=== PATIENT | female | born 1980 | race Caucasian/White ===

== ENCOUNTER → 2018-09-18 15:55 | Outpatient (CLI) | payer OTHER, MEDICAID, SELFPAY ==
--- NOTE | 2018-09-18 | DI.MRI.S_ITS ---
PROCEDURE: MR HEAD/BRAIN WO CON INDICATIONS: DIPLOPIA TECHNIQUE: Noncontrast axial T1 spin echo, axial T2 fast spin echo, sagittal and axial FLAIR, coronal T2 fast spin echo, axial gradient echo, axial diffusion and ADC through the brain. COMPARISON: None. FINDINGS: Image quality: Excellent. CSF Spaces: Basal cisterns are patent. No extra-axial fluid collections. Ventricles are normal in size and shape. Brain: No intracranial masses or hemorrhage. Rivers/white matter interface is normal. Brainstem appears normal. Diffusion-weighted images demonstrate no acute ischemic insult. No chronic ischemic insults. Normal intravascular flow voids are present. Skull and face: Calvarium has normal marrow signal. Orbits appear normal. Sinuses: Sinuses and mastoids are clear. IMPRESSION: 1. Negative brain MRI. 2. No explanation for diplopia. Dictated by: Rosa Colon M.D. on 09/18/2018 at 16:38 Approved by: Rosa Colon M.D. on 09/18/2018 at 16:40
== END ==
PROVIDERS: PCP Family Medicine; Visit Provider Family Medicine
DX: H53.2 Diplopia (principal)
CPT/HCPCS: 70551

== ENCOUNTER → 2019-10-01 09:06 | Outpatient (CLI) | payer OTHER, MEDICAID, SELFPAY ==
--- NOTE | 2019-10-01 09:09 | DI.US.S_ITS ---
PROCEDURE: US PELVIC COMPLETE INDICATIONS: ENDOMETRIOSIS TECHNIQUE: Real-time scanning was performed of the pelvic organs, with image documentation. Additional endovaginal scanning was necessary due to incomplete visualization of the adnexal and endometrial structures by transabdominal scanning. COMPARISON: None. FINDINGS: Transabdominal scanning: Limited scanning through the kidneys shows no hydronephrosis. No pathologic free abdominal or pelvic fluid. Endovaginal scanning: Uterus: Uterus is normal in size at 10.1 x 4.7 x 5.9 cm. the uterus demonstrates a heterogeneous appearance. There is a 2.2 x 2 x 1.9 cm intramural fibroid seen on the right posteriorly. The endometrium measures 10 mm in combined thickness. Ovaries: The right ovary measures 3.4 x 2.6 x 2.2 cm. The left ovary measures 2.8 x 2.2 x 1.4 cm. The ovaries have a normal sonographic appearance. No adnexal masses are seen. IMPRESSION: No adnexal masses are seen in this patient with a given history of endometriosis. Normal appearing ovaries. 2.3 cm right posterior fibroid seen. Dictated by: Elder Wagner M.D. on 10/01/2019 at 10:42 Approved by: Elder Wagner M.D. on 10/01/2019 at 10:43
--- NOTE | 2019-10-01 09:09 | DI.MG.S_ITS ---
BILATERAL DIGITAL SCREENING MAMMOGRAM 3D/2D WITH CAD: 10/01/2019 CLINICAL: Baseline exam. Routine screening. Family history of breast cancer. No prior exams were available for comparison. The tissue of both breasts is predominantly fatty. Current study was also evaluated with a Computer Aided Detection (CAD) system. There is a focal asymmetry with grouped punctate calcifications in the right breast central to the nipple posterior depth. No other significant masses, calcifications, or other findings are seen in either breast. IMPRESSION: INCOMPLETE: NEEDS ADDITIONAL IMAGING EVALUATION The focal asymmetry in the right breast is indeterminate. Spot magnification views as well as additional views with possible ultrasound are recommended. This exam was interpreted at Station ID: [id number]. NOTE: For mammograms, a report in lay terms will be sent to the patient. Approximately 15% of breast malignancies will not be visualized mammographically. In the management of a palpable breast mass, a negative mammogram must not discourage biopsy of a clinically suspicious lesion. Electronically Signed By: Hope Casey M.D. lk/:10/01/2019 09:48:40 letter sent: Additional Imaging Needed ACR BI-RADS Category 0: Incomplete 3340F
== END ==
PROVIDERS: PCP Family Medicine; Referring Provider Obstetrics & Gynecology; Visit Provider Obstetrics & Gynecology
DX: Z12.31 Encounter for screening mammogram for malignant neoplasm of breast (principal); Z80.3 Family history of malignant neoplasm of breast; D25.1 Intramural leiomyoma of uterus; N80.9 Endometriosis, unspecified
CPT/HCPCS: 76830; 76856; 77063; 77067

== ENCOUNTER → 2019-10-15 13:20 | Outpatient (CLI) | payer OTHER, MEDICAID, SELFPAY ==
--- NOTE | 2019-10-15 13:21 | DI.MG.S_ITS ---
UNILATERAL RIGHT DIGITAL DIAGNOSTIC MAMMOGRAM 3D/2D WITH ADDITIONAL VIEWS: 10/15/2019 CLINICAL: Additional evaluation requested from prior study. Comparison is made to exam dated: 10/01/2019 mammogram - [facility]. The tissue of right breast is predominantly fatty. The focal asymmetry with grouped punctate calcifications in the right breast central to the nipple middle depth seen on screning mammogram represent a prominent blood vessel with scattered vascular calcifications and is benign. No other significant masses or calcifications are seen in the breast. IMPRESSION: There is no mammographic abnormality seen in the right breast to correspond with the non-bloody discharge from the nipple, however, targeted ultrasound of the right breast is recommended and will be performed immediately following this exam. This exam was interpreted at Station ID: [id number]. NOTE: For mammograms, a report in lay terms will be sent to the patient. Approximately 15% of breast malignancies will not be visualized mammographically. In the management of a palpable breast mass, a negative mammogram must not discourage biopsy of a clinically suspicious lesion. Electronically Signed By: Hope Casey M.D. lk/:10/17/2019 12:50:17 ACR BI-RADS Category 2: Benign Finding(s) 3342F
--- NOTE | 2019-10-15 13:21 | DI.US.S_ITS ---
PROCEDURE: US BREAST RT LIMITED COMPARISON: None. INDICATIONS: ABNORMAL MAMMOGRAM FINDINGS: IMPRESSION: Dictated by: Hope Casey M.D. on 10/15/2019 at 14:53 Approved by: Hope Casey M.D. on 10/15/2019 at 15:05
== END ==
PROVIDERS: PCP Family Medicine; Referring Provider Obstetrics & Gynecology; Visit Provider Obstetrics & Gynecology
DX: R92.8 Other abnormal and inconclusive findings on diagnostic imaging of breast (principal); R92.1 Mammographic calcification found on diagnostic imaging of breast; N64.52 Nipple discharge; N64.89 Other specified disorders of breast
CPT/HCPCS: 76642; 77065; G0279

== ENCOUNTER 2020-01-12 10:44 | Emergency (ER) | payer OTHER, MEDICAID, SELFPAY ==
[2020-01-12] VITALS (19 sets, daily range): BP systolic 103–147; BP diastolic 56–78; PULSE 62–107; RESP 12; TEMP 36.5; O2SAT 99–100
[2020-01-12 11:46] LABS: Add Manual Diff / Slide Review NO; Basophils Absolute Auto 100 /uL (0-100); Basophils Percent Auto 0.5 % (0-2); Eosinophils Absolute Auto 100 /uL (0-450); Eosinophils Percent Auto 0.6 % (2-4); Hematocrit 37.9 % (36-46); Hemoglobin 12.6 g/dL (12.0-16.0); Lymphocytes Absolute Auto 2900 /uL (1100-4500); Lymphocytes Percent Auto 21.9 % (25-40); Mean Corpuscular HGB Conc 33.3 % (30-36); Mean Corpuscular Hemoglobin 30.5 PG (26-34); Mean Corpuscular Volume 91.6 fL (80-100); Monocytes Absolute Auto 700 /uL (0-900); Monocytes Percent Auto 5.3 % (3-14); Neutrophils Absolute Auto 9400 /uL (1500-7000); Neutrophils Percent Auto 71.7 % (50-75); Platelet Count 464 X10^3/uL (150-400); Red Blood Cell Count 4.14 X10^6/uL (4.0-5.2); Red Cell Distribution Width 13.6 % (11.6-14.8); White Blood Cell Count 13.1 X10^3/uL (4.5-11.0)
[2020-01-12 11:56] LABS: Prothrombin Time 11.1 SECONDS (10.1-12.7)
[2020-01-12 11:58] LABS: PTT Partial Thromboplastin Tim 37 SECONDS (26.4-36.2)
[2020-01-12 12:00] LABS: Alanine Aminotransferase 45 IU/L (<35); Albumin 4.4 g/dL (3.5-5.0); Albumin Globulin Ratio 1.5 (1.0-2.8); Alkaline Phosphatase 106 U/L (38-126); Aspartate Aminotransferase 32 IU/L (14-36); BUN Creatinine Ratio 17.2 (6-22); Bilirubin Total 0.2 mg/dL (0.2-1.3); Blood Urea Nitrogen 10 mg/dL (7-17); Calcium 9.5 mg/dL (8.4-10.2); Carbon Dioxide 26 mmol/L (22-32); Chloride 105 mmol/L (98-107); Estimated Glomerular Filt Rate > 60.0 mL/min (>60); Globulin 2.9 g/dL (1.7-4.1); Glucose 103 mg/dL (70-100); HEMOLYSIS < 15 (0-50); Lipase 29 U/L (23-300); Potassium 4.1 mmol/L (3.4-5.1); Sodium 137 mmol/L (137-145); Total Protein 7.3 g/dL (6.3-8.2)
--- NOTE | 2020-01-12 12:14 | DI.US.S_ITS ---
PROCEDURE: US PELVIC COMPLETE INDICATIONS: PAIN TECHNIQUE: Real-time scanning was performed of the pelvic organs, with image documentation. Additional endovaginal scanning was necessary due to incomplete visualization of the adnexal and endometrial structures by transabdominal scanning. COMPARISON: [facility], , US PELVIC COMPLETE, 10/01/2019, 10:10. FINDINGS: Transabdominal scanning: Limited scanning through the kidneys demonstrates no hydronephrosis. A small amount of free fluid is demonstrated in the adnexa bilaterally with low level internal echoes suggestive of blood product. Endovaginal scanning: Uterus: Uterus measures 9.7 x 5.1 x 6.4. The endometrium measures 1.7 cm in combined thickness with suggestion of a small amount of endometrial fluid. There are 2 right posterior intramural fibroids measuring 1.7 x 1.3 x 1.7 cm and 1.5 x 0.9 x 1.6 cm. Ovaries: The right ovary measures 6.3 x 4.4 x 4.8 cm and the left ovary measures 3.5 x 1.7 x 2.6 cm. There is a thick-walled cystic structure in the right ovary measuring approximately 3.9 x 2.9 x 3.7 cm with posterior acoustic enhancement. There is peripheral vascularity within the wall of the cystic structure. No discrete left adnexal mass. There is patent arterial flow demonstrated within the ovaries. IMPRESSION: 1. Thick-walled complex cyst in the right ovary suggestive of a hemorrhagic cyst. Recommend follow-up ultrasound in 6 weeks to demonstrate resolution if clinically indicated. 2. Small amount of free fluid within the adnexa with low level internal echoes suggestive of blood products. The findings may reflect sequelae of a ruptured hemorrhagic cyst. Recommend attention on follow-up. 3. Mild endometrial thickening likely represents physiologic changes within a premenopausal female. 4. Small intramural fibroids demonstrated in the uterus. Dictated by: Michael Solares M.D. on 01/12/2020 at 14:08 Approved by: Michael Solares M.D. on 01/12/2020 at 14:15
--- NOTE | 2020-01-12 12:17 | ED_ITS ---
HPI - Abdominal Pain <NEVILLE Gan - Last Filed: 01/12/20 23:06> General Chief Complaint: Abdominal Pain Stated Complaint: abdominal cyst Time Seen by Provider: 01/12/20 11:43 Source: patient Mode of arrival: Ambulatory Limitations: no limitations History of Present Illness HPI narrative: This is a 39 year female, smoker, who has history of endometriosis for last 20 years and had laparoscopic surgery by Dr. Barroso in the past, presents to ED with chief complain of abdominal distension and bilateral low abdominal pain below umbilicus with nausea and chills which became worse si nce yesterday evening at 7:00 p.m.. Patient reports her symptoms are ongoing for last 2-3 months and she used to take control pill to help with endometriosis but got off about 2-3 months ago after noticed platelet count is elevated. She had taken Aleve last night without much improvement. Patient reports pain is radiating to her back from mid abdomen below umbilicus and also from perineum to upper abdomen. She rates pain as 6-9/10 and pretty constant. She reports chills. Patient denies unusual vaginal discharge. She reports her bladder feels full and feels like emptying incompletely with frequent urination. Patient denies burning discomfort with urination but painful to urinate at times. She reports loose bowel movements which is normal for her and had probably yesterday morning. Patient reports mildly decreased appetite and gradual weight loss of 10 lb. Patient was seen by Dr. Canchola last year to follow up with endometriosis about a year ago and had last ultrasound test in pelvic done about 4 months ago. Related Data Previous Rx's Medication Instructions Recorded oxycodone 5 mg tablet 5 mg PO Q8H PRN #14 tab 01/23/20 Allergies Allergy/AdvReac Type Severity Reaction Status Date / Time hydrocodone AdvReac Nausea Verified 01/23/20 13:10 Review of Systems <NEVILLE Gan - Last Filed: 01/12/20 23:06> Review of Systems Narrative: General: Denies fever, (+) chills, fatigue, malaise, sweats. HEENT: Denies sinus pain, ear pain, sore throat, difficulty swallowing, dizziness. Respiratory: Denies dyspnea, cough, wheezing, hemoptysis, sputum. Cardiovascular: Denies chest pain, palpitations, orthopnea, edema. Gastrointestinal: See HPI : Denies dysuria, see HPI Musculoskeletal: Denies weakness, joint pain or bony pain. Skin: Denies rash, skin lesions, or other. Neurologic: Denies weakness, headache, numbness, change in speech, confusion, seizures, incoordination. Psychiatric: No concerning psychosocial issues. 12-point review of systems is negative except for those stated above. Patient History <NEVILLE Gan - Last Filed: 01/12/20 23:06> Medical History Endometriosis (Acute) Vaginal delivery (Acute) Surgical History H/O laparoscopy (Acute ~2004) Family History Father History of heart disease Diabetes mellitus Hyperlipidemia Hypertension Grandfather History of heart disease Diabetes mellitus Social History Smoking Status: Current every day smoker Smoking Status: Current every day smoker alcohol intake frequency: other Substance Use Type: does not use Exam <NEVILLE Gan - Last Filed: 01/12/20 23:06> Narrative Exam Narrative: GEN: Alert, oriented x 3, well appearing and nourished, and in no acute distress. Head: Normal cephalic, atraumatic. No scalp or temporal tenderness, palpable mass or rash. EYES: Pupils are equal, round, and reactive to light and accommodation. E xtraocular muscles are intact bilaterally. There is no subconjunctival hemorrhage, exudate and sclera non-icteric. ENT: Hearing grossly intact. Nose without bleeding, purulent discharge or deviation. Facial sinuses nontender to palpate. Mucous membrane slightly dry, no mucosal lesion. Throat without erythema, tonsillar hypertrophy or exudate. Uvula in midline, airway patent. Neck: Trachea in midline. No JVD, non-tender without lymphadenopathy. No masses or thyroid megaly. Supple, non-tender and no meningeal signs. CARDIAC: Normal regular rate and rhythm without murmurs, gallops, or rubs. No chest wall tenderness. No peripheral edema, cyanosis or pallor. Capillary refill is less than 2 seconds. RESPIRATORY: Lungs are clear to auscultate bilaterally. No cough, wheezes, rales, or rhonchi. No stridor, respiratory distress, increase work of breathing, or accessary muscle used. ABD: Abdomen soft, with mild distension and tender to palpate in bilateral lower abdomen. No guarding or rebound tenderness to palpate. Bowel sounds are normal in all 4 quadrants. There is no palpable masses or organomegaly. EXT: Full painless ROM of all extremities with no loss of sensation, strength, effusion or edema. SKIN: Warm, dry, normal color for patient. No erythema, lesions or rash over visible areas. BACK: Nontender without deformity or crepitance. No flank tenderness. NEUROLOGICAL: Alert and oriented to place, time and person. Sensation and motor function intact bilaterally. No facial droops, dysphasia. PSYCHIATRIC: Good judgement and reason, without hallucinations, abnormal affect or abnormal behaviors during the examination. Patient is not suicidal. Initial Vital Signs Initial Vital Signs: Vital Signs Temperature 97.7 F 01/12/20 10:46 Pulse Rate 99 H 01/12/20 10:46 Respiratory Rate 12 01/12/20 10:46 Blood Pressure 147/76 H 01/12/20 10:46 Pulse Oximetry 100 01/12/20 10:46 General: No CVA tenderness External Female Exam: normal external appearance Speculum Exam - Vagina: normal appearance of the vagina, normal vaginal discharge, not erythematous, no lesions, No vaginal bleeding and no masses Speculum Exam - Cervix: normal appearance of the cervix Bimanual Exam- Vagina & Uterus: not boggy and tender Bimanual Exam- Adnexa, other: tender on the right OB/External & Speculum: No vaginal bleeding Other: Post Void Bladder scan-42ml <Connor Anaya MD - Last Filed: 01/27/20 09:05> Initial Vital Signs Initial Vital Signs: Vital Signs Temperature 97.7 F 01/12/20 10:46 Pulse Rate 99 H 01/12/20 10:46 Respiratory Rate 12 01/12/20 10:46 Blood Pressure 147/76 H 01/12/20 10:46 Pulse Oximetry 100 01/12/20 10:46 Scores <Jignesh NEVILLE Servin - Last Filed: 01/12/20 23:06> GCS [place] coma scale eye opening: Spontaneous [place] coma scale verbal response: Orientated [place] coma scale motor response: Obey commands [place] coma scale total score: 15 qSOFA Altered Mental Status (GCS <15): No Respiratory rate greater than/equal to 22: No Systolic blood pressure less than or equal to 100: No qSOFA Total: 0 0-1 Not High Risk 1-3 High risk Course <Jignesh Donaldson-NEVILLE Rojo - Last Filed: 01/12/20 23:06> Orders Ordered: Discontinued Medications Sodium Chloride (Normal Saline 0.9%) 1,000 mls @ 1,000 mls/hr IV BOLUS ONE Stop: 01/12/20 13:15 Last Infusion: 01/12/20 13:50 Dose: 0 mls/hr Documented by: Admin: 01/12/20 12:41 Dose: 1,000 mls/hr Documented by: KRISTAN Ketorolac Tromethamine (Toradol) 15 mg IV NOW ONE Stop: 01/12/20 12:17 Last Admin: 01/12/20 12:41 Dose: 15 mg Documented by: KRISTAN Morphine Sulfate (Morphine) 4 mg IV NOW ONE Stop: 01/12/20 15:02 Last Admin: 01/12/20 15:10 Dose: 4 mg Documented by: KRISTAN Ondansetron HCl (Zofran) 4 mg IV NOW ONE Stop: 01/12/20 12:17 Last Admin: 01/12/20 12:41 Dose: 4 mg Documented by: KRISTAN Reevaluation(s) Reevaluation #1: Reports abdominal pain improved after the Toradol which took the edge off and declines other analgesia at this time. Informed patient currently waiting for ultrasound test results. Time: 13:43 Vital Signs Vital signs: Vital Signs - 8 hr 01/12/20 14:30 01/12/20 15:00 01/12/20 15:30 Pulse Rate 62 64 68 Blood Pressure 103/66 108/56 L 110/61 Pulse Oximetry 100 100 100 01/12/20 15:35 01/12/20 15:40 01/12/20 15:45 Pulse Rate 107 H 80 Blood Pressure Pulse Oximetry 99 100 100 01/12/20 15:50 01/12/20 15:55 01/12/20 16:00 Pulse Rate 63 63 73 Blood Pressure 106/66 Pulse Oximetry 100 100 100 01/12/20 16:05 01/12/20 16:11 01/12/20 16:15 Pulse Rate 64 83 68 Blood Pressure Pulse Oximetry 100 99 100 01/12/20 16:20 Pulse Rate 62 Blood Pressure Pulse Oximetry 100 <Connor Anaya MD - Last Filed: 01/27/20 09:05> Orders Ordered: Discontinued Medications Sodium Chloride (Normal Saline 0.9%) 1,000 mls @ 1,000 mls/hr IV BOLUS ONE Stop: 01/12/20 13:15 Last Infusion: 01/12/20 13:50 Dose: 0 mls/hr Documented by: Admin: 01/12/20 12:41 Dose: 1,000 mls/hr Documented by: KRISTAN Ketorolac Tromethamine (Toradol) 15 mg IV NOW ONE Stop: 01/12/20 12:17 Last Admin: 01/12/20 12:41 Dose: 15 mg Documented by: KRISTAN Morphine Sulfate (Morphine) 4 mg IV NOW ONE Stop: 01/12/20 15:02 Last Admin: 01/12/20 15:10 Dose: 4 mg Documented by: KRISTAN Ondansetron HCl (Zofran) 4 mg IV NOW ONE Stop: 01/12/20 12:17 Last Admin: 01/12/20 12:41 Dose: 4 mg Documented by: KRISTAN Vital Signs Vital signs: Vital Signs - 8 hr 01/12/20 14:30 01/12/20 15:00 01/12/20 15:30 Pulse Rate 62 64 68 Blood Pressure 103/66 108/56 L 110/61 Pulse Oximetry 100 100 100 01/12/20 15:35 01/12/20 15:40 01/12/20 15:45 Pulse Rate 107 H 80 Blood Pressure Pulse Oximetry 99 100 100 01/12/20 15:50 01/12/20 15:55 01/12/20 16:00 Pulse Rate 63 63 73 Blood Pressure 106/66 Pulse Oximetry 100 100 100 01/12/20 16:05 01/12/20 16:11 01/12/20 16:15 Pulse Rate 64 83 68 Blood Pressure Pulse Oximetry 100 99 100 01/12/20 16:20 Pulse Rate 62 Blood Pressure Pulse Oximetry 100 MDM - Abdominal Pain <NEVILLE Gan - Last Filed: 01/12/20 23:06> Differential Diagnosis Differential diagnosis: Likely endometriosis and other (Fibroids, ovarian cysts, colitis, ovarian torsion, UTI) Medical Records Attestation: I reviewed the patient's medical records. Lab Data Attestation: I reviewed the patient's lab results. Result diagrams: 01/12/20 11:37 01/12/20 11:37 Labs: Lab Results 01/12/20 01/12/20 01/12/20 Range/Units 11:37 11:37 11:37 WBC 13.1 H (4.5-11.0) X10^3/uL RBC 4.14 (4.0-5.2) X10^6/uL Hgb 12.6 (12.0-16.0) g/dL Hct 37.9 (36-46) % MCV 91.6 (80-100) fL MCH 30.5 (26-34) PG MCHC 33.3 (30-36) % RDW 13.6 (11.6-14.8) % Plt Count 464 H (150-400) X10^3/uL Neut % (Auto) 71.7 (50-75) % Lymph % (Auto) 21.9 L (25-40) % Jerome % (Auto) 5.3 (3-14) % Eos % (Auto) 0.6 L (2-4) % Baso % (Auto) 0.5 (0-2) % Neut # (Auto) 9400 H (8156-1719) /uL Lymph # (Auto) 2900 (9402-7995) /uL Jerome # (Auto) 700 (0-900) /uL Eos # (Auto) 100 (0-450) /uL Baso # (Auto) 100 (0-100) /uL PT 11.1 (10.1-12.7) SECONDS INR 1.0 (0.9-1.3) APTT 37 H (26.4-36.2) SECONDS Sodium 137 (137-145) mmol/L Potassium 4.1 (3.4-5.1) mmol/L Chloride 105 (98-107) mmol/L Carbon Dioxide 26 (22-32) mmol/L BUN 10 (7-17) mg/dL Creatinine 0.58 (0.52-1.04) mg/dL Estimated GFR > 60.0 (>60) mL/min BUN/Creatinine Ratio 17.2 (6-22) Glucose 103 H (70-100) mg/dL Calcium 9.5 (8.4-10.2) mg/dL Total Bilirubin 0.2 (0.2-1.3) mg/dL AST 32 (14-36) IU/L ALT 45 H (<35) IU/L Alkaline Phosphatase 106 (38-126) U/L Total Protein 7.3 (6.3-8.2) g/dL Albumin 4.4 (3.5-5.0) g/dL Globulin 2.9 (1.7-4.1) g/dL Albumin/Globulin Ratio 1.5 (1.0-2.8) Lipase 29 (23-300) U/L Point of care testing: Point of Care Testing Test Results Negative Urine Dip Bedside Urine Glucose Negative Bedside Urine Bilirubin - Negative Bedside Urine Ketone - Negative Urine Specific [place] 1.020 Bedside Urine Occult Blood - Negative Bedside Urine pH 6.0 Bedside Urine Protein - Negative Bedside Urine Urobilinogen - Negative Bedside Urine Nitrite - Negative Bedside Urine Leukocytes - Negative Esterase Imaging Data US - [facility]: Radiologist's Impression: [address] [address] Ultrasound Report Signed Patient: Claudette Navarro EMR#: [id number] : 1980Acct:[id number] Age/Sex: 39 / FDate of Service: 01/12/20 Loc: ED Accession Number: [id number] Procedure: US pelvic complete Ordering Provider: Jignesh Servin PROCEDURE: US PELVIC COMPLETE INDICATIONS: PAIN TECHNIQUE: Real-time scanning was performed of the pelvic organs, with image documentation. Additional endovaginal scanning was necessary due to incomplete visualization of the adnexal and endometrial structures by transabdominal scanning. COMPARISON: [facility], US PELVIC COMPLETE, 10/01/2019, 10:10. FINDINGS: Transabdominal scanning: Limited scanning through the kidneys demonstrates no hydronephrosis. A small amount of free fluid is demonstrated in the adnexa bilaterally with low level internal echoes suggestive of blood product. Endovaginal scanning: Uterus: Uterus measures 9.7 x 5.1 x 6.4. The endometrium measures 1.7 cm in combined thickness with suggestion of a small amount of endometrial fluid. There are 2 right posterior intramural fibroids measuring 1.7 x 1.3 x 1.7 cm and 1.5 x 0.9 x 1.6 cm. Ovaries: The right ovary measures 6.3 x 4.4 x 4.8 cm and the left ovary measures 3.5 x 1.7 x 2.6 cm. There is a thick-walled cystic structure in the right ovary lee suring approximately 3.9 x 2.9 x 3.7 cm with posterior acoustic enhancement. There is peripheral vascularity within the wall of the cystic structure. No discrete left adnexal mass. There is patent arterial flow demonstrated within the ovaries. IMPRESSION: 1. Thick-walled complex cyst in the right ovary suggestive of a hemorrhagic cyst. Recommend follow-up ultrasound in 6 weeks to demonstrate resolution if clinically indicated. 2. Small amount of free fluid within the adnexa with low level internal echoes suggestive of blood products. The findings may reflect sequelae of a ruptured hemorrhagic cyst. Recommend attention on follow-up. 3. Mild endometrial thickening likely represents physiologic changes within a premenopausal female. 4. Small intramural fibroids demonstrated in the uterus. Dictated by: Michael Solares M.D. on 01/12/2020 at 14:08 Approved by: Michael Solares M.D. on 01/12/2020 at 14:15 ECG Data Attestation: I personally reviewed and interpreted this ECG as follows: Prior ECG tracings: not available for review Interpretation: Sinus rhythm rate at 76. Normal [place]. NC interval 157, QRS duration 103, QT/QTC 385/416. No acute ST changes MDM Narrative Medical decision making narrative: This is a 39 year female who presents to ED with mid abdominal pain below umbilicus radiating to back, perineum pain radiating up to abdomen with urinary frequency and discomfort and nausea. Patient has history of endometriosis and had laparoscopic surgery done many years ago and stop taking control pill last 2 months due to elevated platelet counts. Patient is afebrile in ED mild tachycardia of 99 beats per minute with normotensive when she arrived to ED. No flank tenderness to percuss. Abdomen was tender to palpate in bilateral worsen right-sided lower lobes. Active bowel sounds in all quadrant. Slightly distended abdomen. Urine test was negative for or indications for infection or occult hematuria. Complete pelvic ultrasound shows mild endometrial thickening measuring 1.7 cm in combined thickness with a small amount of endometrial fluid. There are 2 intramural fibroids measuring less than 2 cm i diameter. Previous US showes in September 2019 one fibroid mesuring 2.3 cm. A large Right ovary measuring 6.3 x 4.4 x and 4.8 cm with a thick-walled complex cyst suggestive of a hemorrhagic cyst measuring 3.9 x 2.9 x 3.7 cm. Right ovary increased in size as compared to September from 3.4 x 2.6 x 2.2 cm and a new finding of right ovarian cyst. Left ovary slightly increase in size from September measurin 3.5 x 1.7 x 2.6 cm without discrete left adnexal mass. There is small amount of free fluid within the adnexa and these findings may reflect sequela of a ruptured hemorrhagic cyst. Within normal H/H of 12.6/37.9. Mild leukocytosis of 13.1. Slightly elevated platelet count of 464 which has been monitored by his PCP with known condition. Unremarkable chemistry test. Pelvic exam with normal external genital exam without unusual vaginal discharge but slight tender to palpate with bimanual exam in uterus and right ovaries without significant cervical motion tenderness. Patient has history of known endometriosis. Given patient reports frequent urination and feels like incomplete bladder emptying, post void bladder scanner was done and it shows minimal amount of urine in bladder of 42 mL. Patient was medicated with IV Zofran, Toradol, IVF infusion and Morphine 4 mg for recurring pain before the pelvic exam. Patient's abdominal discomfort is likely from enlarged right ovary and possibly ruptured right ovary and thick wall complex cyst in right ovary. Patient advised to follow-up with Dr. Canchola or Dr. Barroso at [facility] and discharged to home with few tabs of [place] for severe pain and to use [id number] Tylenol and or Motrin as needed for discomfort. Patient also provided Zofran as needed use for nausea. patient's heart rate has improved to 60s with normotensive before discharge to home. Return precautions were discussed with patient patient verbalized understanding in agreement with the treatment plan. <Connor Anaya MD - Last Filed: 01/27/20 09:05> Lab Data Labs: Lab Results 0901/12/20 01/12/20 Range/Units 11:37 11:37 11:37 WBC 13.1 H (4.5-11.0) X10^3/uL RBC 4.14 (4.0-5.2) X10^6/uL Hgb 12.6 (12.0-16.0) g/dL Hct 37.9 (36-46) % MCV 91.6 (80-100) fL MCH 30.5 (26-34) PG MCHC 33.3 (30-36) % RDW 13.6 (11.6-14.8) % Plt Count 464 H (150-400) X10^3/uL Neut % (Auto) 71.7 (50-75) % Lymph % (Auto) 21.9 L (25-40) % Jerome % (Auto) 5.3 (3-14) % Eos % (Auto) 0.6 L (2-4) % Baso % (Auto) 0.5 (0-2) % Neut # (Auto) 9400 H (4728-3402) /uL Lymph # (Auto) 2900 (4940-0081) /uL Jerome # (Auto) 700 (0-900) /uL Eos # (Auto) 100 (0-450) /uL Baso # (Auto) 100 (0-100) /uL PT 11.1 (10.1-12.7) SECONDS INR 1.0 (0.9-1.3) APTT 37 H (26.4-36.2) SECONDS Sodium 137 (137-145) mmol/L Potassium 4.1 (3.4-5.1) mmol/L Chloride 105 (98-107) mmol/L Carbon Dioxide 26 (22-32) mmol/L BUN 10 (7-17) mg/dL Creatinine 0.58 (0.52-1.04) mg/dL Estimated GFR > 60.0 (>60) mL/min BUN/Creatinine Ratio 17.2 (6-22) Glucose 103 H (70-100) mg/dL Calcium 9.5 (8.4-10.2) mg/dL Total Bilirubin 0.2 (0.2-1.3) mg/dL AST 32 (14-36) IU/L ALT 45 H (<35) IU/L Alkaline Phosphatase 106 (38-126) U/L Total Protein 7.3 (6.3-8.2) g/dL Albumin 4.4 (3.5-5.0) g/dL Globulin 2.9 (1.7-4.1) g/dL Albumin/Globulin Ratio 1.5 (1.0-2.8) Lipase 29 (23-300) U/L Point of care testing: Point of Care Testing Test Results Negative Urine Dip Bedside Urine Glucose Negative Bedside Urine Bilirubin - Negative Bedside Urine Ketone - Negative Urine Specific [place] 1.020 Bedside Urine Occult Blood - Negative Bedside Urine pH 6.0 Bedside Urine Protein - Negative Bedside Urine Urobilinogen - Negative Bedside Urine Nitrite - Negative Bedside Urine Leukocytes - Negative Esterase Discharge Plan Departure Patient Disposition: Home Clinical Impression: Abdominal pain, Ovarian cyst, Fibroid Discharge Date/Time: 01/12/20 16:30 Instructions: DI for Uterine Fibroids, DI for Ovarian Cyst, DI for Abdominal Pain-Adult Activity Restrictions/Additional Instructions: You have been diagnosed with [low abdominal pain. Likely from ovarian cysts and fibroids. According to pelvic ultrasound, it appears to be you probably had recent ovarian cyst rupture. Right ovarian measuring 6.3 x 4.4 x 4.8 and posterior right-sided cyst measuring 3.9 x 2.9 x 3.7 cm and left ovary measuring 3.5 x 1.7 x 2.6 with small amount of free fluid within the adnexa reflecting all ruptured hemorrhagic cyst. You also have 2 intramural fibroids in uterus.]. What to do: *Take your medications as directed. Please take [id number] Tylenol and or Motrin as needed for discomfort. Tylenol 650-1000 mg up to 3 to 4 times a day as needed for pain. Ibuprofen 400-600 mg up to 3 times a day as needed for pain with food to decrease GI irritation. For severe pain you can take normal call which is narcotic pain medication. This medication can cause drowsiness so please do not drive, drink alcohol or operate heavy equipments. Also he can cause constipation so please take precautions. Zofran as needed for nausea. These to medication have been transmitted to [facility]. *Follow up with your primary care provider in 2-3 days, call for an appointment. Please contact Dr. Canchola to follow up. Let them know you were seen in the ED and that we asked you to be seen in follow up. *Return to ED if you have any new, worsening, or concerning symptoms, such as [worsening pain, fever, unable to tolerate fluids, chest pain, breathing difficulty, lightheadedness, or any acute concerns]. Prescriptions: No Action oxycodone 5 mg tablet 5 mg PO Q8H PRN (Reason: pain) Qty: 14 RF: 0 Referrals: Germaine Canchola MD [Physician] - Jaden Thapa MD [Primary Care Provider] -
[2020-01-12] MEDS: SODIUM CHLORIDE 0.9% 1,000 ML 1000 ML IV (12:41)
[2020-01-12] MEDS: ONDANSETRON 4 MG/2 ML INJ IV (12:41)
[2020-01-12] MEDS: KETOROLAC 60 MG/2 ML VIAL 15 MG IV (12:41)
[2020-01-12] MEDS: MORPHINE 4 MG/ML INJ IV (15:10)
== END 2020-01-12 16:30 | disposition home or self-care (01) ==
PROVIDERS: Emergency Medicine; Emergency Provider Nurse Practitioner Family; PCP Family Medicine
DX: D21.9 Benign neoplasm of connective and other soft tissue, unspecified (principal); R10.30 Lower abdominal pain, unspecified; N83.201 Unspecified ovarian cyst, right side; R11.0 Nausea; R00.0 Tachycardia, unspecified; R79.89 Other specified abnormal findings of blood chemistry; N80.9 Endometriosis, unspecified
CPT/HCPCS: 36415; 51798; 76830; 76856; 80053; 81003; 81025; 83690; 85025; 85610; 85730; 93005; 93010; 96361; 96374; 96375; 99284; J1885; J2270; J2405

== ENCOUNTER 2020-03-27 13:06 | Emergency (ER) | payer OTHER, MEDICAID, SELFPAY ==
[2020-03-27] VITALS (9 sets, daily range): BP systolic 113–162; BP diastolic 63–89; PULSE 75–108; RESP 16–18; TEMP 37.1; O2SAT 99–100; BMI 33.6
[2020-03-27 13:51] LABS: Add Manual Diff / Slide Review NO; Basophils Absolute Auto 100 /uL (0-100); Basophils Percent Auto 0.9 % (0-2); Eosinophils Absolute Auto 200 /uL (0-450); Eosinophils Percent Auto 1.5 % (2-4); Hematocrit 41.5 % (36-46); Hemoglobin 14.1 g/dL (12.0-16.0); Lymphocytes Absolute Auto 4600 /uL (1100-4500); Lymphocytes Percent Auto 41.7 % (25-40); Mean Corpuscular HGB Conc 33.9 % (30-36); Mean Corpuscular Hemoglobin 31.1 PG (26-34); Mean Corpuscular Volume 91.8 fL (80-100); Monocytes Absolute Auto 800 /uL (0-900); Monocytes Percent Auto 6.8 % (3-14); Neutrophils Absolute Auto 5400 /uL (1500-7000); Neutrophils Percent Auto 49.1 % (50-75); Platelet Count 549 X10^3/uL (150-400); Red Blood Cell Count 4.52 X10^6/uL (4.0-5.2); Red Cell Distribution Width 13.8 % (11.6-14.8)
[2020-03-27 13:57] LABS: Alanine Aminotransferase 30 IU/L (<35); Albumin 4.9 g/dL (3.5-5.0); Albumin Globulin Ratio 1.4 (1.0-2.8); Alkaline Phosphatase 120 U/L (38-126); Aspartate Aminotransferase 28 IU/L (14-36); BUN Creatinine Ratio 17.2 (6-22); Bilirubin Total 0.4 mg/dL (0.2-1.3); Blood Urea Nitrogen 10 mg/dL (7-17); Carbon Dioxide 28 mmol/L (22-32); Chloride 105 mmol/L (98-107); Estimated Glomerular Filt Rate > 60.0 mL/min (>60); Globulin 3.4 g/dL (1.7-4.1); Glucose 124 mg/dL (70-100); HEMOLYSIS 17 (0-50); Lipase 35 U/L (23-300); Potassium 3.7 mmol/L (3.4-5.1); Sodium 137 mmol/L (137-145); Total Protein 8.3 g/dL (6.3-8.2)
--- NOTE | 2020-03-27 14:30 | DI.CT.S_ITS ---
PROCEDURE: CT ABDOMEN PELVIS W CON INDICATIONS: abd pain, bloating, R flank pain TECHNIQUE: After the administration of intravenous contrast, 5 mm thick sections acquired from the diaphragm to the symphysis. 5 mm coronal and sagittal reformats were acquired. For radiation dose reduction, the following was used: automated exposure control, adjustment of mA and/or kV according to patient size. COMPARISON: None. FINDINGS: Image quality: Excellent. ABDOMEN: Lung bases: Lung bases are clear. Heart size is normal. Solid organs: Liver is normal in size and enhancement. Gallbladder is unremarkable . Biliary system is non dilated. Pancreas enhances normally. Spleen is normal in size and enhancement. No adrenal nodules. Kidneys demonstrate normal size and enhancement, without hydronephrosis. Punctate nonobstructing nephrolith within the inferior collecting system of the right kidney. Peritoneum and bowel: Bowel loops demonstrate normal wall thickness and caliber. Appendix is normal. No free fluid or air. Nodes and vessels: No retroperitoneal or mesenteric adenopathy by size criteria. Aorta and inferior vena cava are normal in size. There is mild prominence of the left adnexal vessels with the left ovarian vein mildly enlarged measuring 9 millimeters. Miscellaneous: Small fat containing periumbilical hernia. PELVIS: Genitourinary: Bladder wall thickness is normal. Miscellaneous: No inguinal hernias or adenopathy. Bones: No suspicious bony lesions. No vertebral body compression fractures. IMPRESSION: No evidence of an acute intra-abdominal/pelvic abnormality. Punctate nonobstructing right inferior pole nephrolith. No obstructive uropathy. Mild dilation of the left ovarian vein along with prominence of the left adnexal vessels. Recommend correlation for pelvic congestion syndrome. Dictated by: Oliver Gil D.O. on 03/27/2020 at 14:26 Approved by: Oliver Gil D.O. on 03/27/2020 at 14:32
[2020-03-27] MEDS: SODIUM CHLORIDE 0.9% 1,000 ML 1000 ML IV (14:48)
[2020-03-27] MEDS: LIDOCAINE PATCH 1 EACH ADH..PATCH TOP (16:07)
[2020-03-27] MEDS: KETOROLAC 60 MG/2 ML VIAL 30 MG IV (16:07)
[2020-03-27] MEDS: CYCLOBENZAPRINE 10 MG TABLET PO (16:07)
[2020-03-27] MEDS: ONDANSETRON 4 MG ODT SL (17:23)
[2020-03-27] MEDS: HYDROCODONE/ACET 5/325 TABLET 1 TAB PO (17:23)
--- NOTE | 2020-03-27 17:36 | ED.ABDPAIN ---
HPI - Abdominal Pain <JOANNE Redding-BC - Last Filed: 03/27/20 17:43> General Chief Complaint: Abdominal Pain Stated Complaint: abd distention 3 months Time Seen by Provider: 03/27/20 13:44 Source: patient and family Mode of arrival: Ambulatory Limitations: no limitations History of Present Illness HPI narrative: The patient is a 39-year-old female current everyday smoker with history of ovarian cysts, fibroids, endometriosis who presents with a chief complaint of right-sided flank pain. She states she has had issues with abdominal distension over the past 3 months, has seen her primary care provider, been seen in this emergency department, seen several different OB GYNs and gone to a few different emergency department regarding her abdominal pain and distension. This is been ongoing for about 3 months. After that, she developed right-sided flank pain. She states that today her right flank pain is much worse than her abdominal pain and distension. She denies any possibility of sexually transmitted infections. She denies any vaginal discharge. She denies any fevers muscle aches or chills. She states that she is concerned about her right kidney as she has been diagnosed with hydronephrosis prior. She denies any dysuria urgency or frequency. She states that the pain is constant, with no as specific alleviating or exacerbating factors. Related Data Previous Rx's Medication Instructions Recorded oxycodone 5 mg tablet 5 mg PO Q8H PRN #14 tab 01/23/20 cyclobenzaprine 10 mg PO TID PRN #10 tab 03/27/20 hydrocodone-acetaminophen [Custer] 1 tab PO Q4-6H PRN #10 tab 03/27/20 ketorolac 10 mg PO TID PRN #14 tab 03/27/20 lidocaine 1 patch TOPICAL DAILY PRN #15 ea 03/27/20 ondansetron 4 mg PO Q6H PRN #14 tab 03/27/20 Allergies Allergy/AdvReac Type Severity Reaction Status Date / Time hydrocodone AdvReac Nausea Verified 01/23/20 13:10 Review of Systems <FLAKO ReddingBC - Last Filed: 03/27/20 17:43> Review of Systems Narrative: GENERAL: Denies chills, fatigue, malaise, fever, sweats. HEENT: Denies sinus pain, ear pain, sore throat, difficulty swallowing, dizziness. RESPIRATORY: Denies dyspnea, cough, wheezing, hemoptysis, sputum. CARDIOVASCULAR: Denies chest pain, palpitations, orthopnea, edema, GASTROINTESTINAL: See HPI : See HPI MUSCULOSKELETAL: denies weakness, joint pain, or bony pain SKIN: Denies rash, skin lesions, or other NEUROLOGIC: Denies weakness, headache, numbness, change in speech, confusion, seizures, incoordination. PSYCHIATRIC: No concerning psychosocial issues. 12 point review of systems is negative except for those stated above Patient History <PILAR Redding - Last Filed: 03/27/20 17:43> Medical History Endometriosis Vaginal delivery Surgical History H/O laparoscopy (~2004) Family History Father History of heart disease Diabetes mellitus Hyperlipidemia Hypertension Grandfather History of heart disease Diabetes mellitus Social History Smoking Status: Current every day smoker Smoking Status: Current every day smoker alcohol intake frequency: other Substance Use Type: does not use Exam <PILAR Redding - Last Filed: 03/27/20 17:43> Narrative Exam Narrative: GENERAL: This is a well-nourished, well-developed patient, in mild distress. HEAD: Atraumatic. Normocephalic. No temporal or scalp tenderness. EYES: Pupils equal round and reactive. Extraocular motions intact. No scleral icterus. No injection or drainage. ENT: Nose without bleeding, purulent drainage or septal hematoma. Wearing a mask. Airway patent. NECK: Trachea midline. No JVD or lymphadenopathy. Supple, nontender, no meningeal signs. CARDIOVASCULAR: Regular rate and rhythm RESPIRATORY: Clear to auscultation. Breath sounds equal bilaterally. No wheezes, rales, or rhonchi. No cough. No increased respiratory effort. No accessory muscle use. GASTROINTESTINAL: Abdomen soft, diffusely tender to palpation with no guarding, nondistended. No hepato-splenomegaly, or palpable masses. No guarding. Active bowel sounds all 4 quadrants. EXTREMITIES: No clubbing, cyanosis, or edema. No joint tenderness, effusion, or edema noted. BACK: Nontender without deformity or crepitance. CVA tenderness noted right side, pain to paraspinal muscles right side, no pain to palpation left side. NEURO: AOx3. SKIN: No rash or erythema on visible skin Initial Vital Signs Initial Vital Signs: Vital Signs Pulse Rate 100 H 03/27/20 13:12 Pulse Oximetry 100 03/27/20 13:12 <Claudia Paris DO - Last Filed: 03/28/20 07:43> Initial Vital Signs Initial Vital Signs: Vital Signs Pulse Rate 100 H 03/27/20 13:12 Pulse Oximetry 100 03/27/20 13:12 Scores <PILAR Redding - Last Filed: 03/27/20 17:43> GCS Deland coma scale eye opening: Spontaneous Deland coma scale verbal response: Orientated Del[place] coma scale motor response: Obey commands Deland coma scale total score: 15 Course <PILAR Redding - Last Filed: 03/27/20 17:43> Orders Ordered: Discontinued Medications Hydrocodone Bitart/Acetaminophen (Hydrocodone/Acet 5/325 Tablet) 1 tab PO NOW ONE Stop: 03/27/20 17:03 Last Admin: 03/27/20 17:23 Dose: 1 tab Documented by: HUMBERTO Cyclobenzaprine HCl (Cyclobenzaprine 10 Mg Tablet) 10 mg PO NOW ONE Stop: 03/27/20 15:52 Last Admin: 03/27/20 16:07 Dose: 10 mg Documented by: HUMBERTO Sodium Chloride (Normal Saline 0.9%) 1,000 mls @ 1,000 mls/hr IV BOLUS ONE Stop: 03/27/20 15:29 Last Infusion: 03/27/20 15:51 Dose: 0 mls/hr Documented by: Admin: 03/27/20 14:48 Dose: 1,000 mls/hr Documented by: HUMBERTO Ketorolac Tromethamine (Ketorolac 60 Mg/2 Ml Vial) 30 mg IV NOW ONE Stop: 03/27/20 15:52 Last Admin: 03/27/20 16:07 Dose: 30 mg Documented by: HUMBERTO Lidocaine (Lidocaine Patch 1 Each Adh..Patch) 1 each TOP NOW ONE Stop: 03/27/20 15:52 Last Admin: 03/27/20 16:07 Dose: 1 each Documented by: HUMBERTO Ondansetron HCl (Ondansetron 4 Mg Odt) 4 mg SL NOW ONE Stop: 03/27/20 17:03 Last Admin: 03/27/20 17:23 Dose: 4 mg Documented by: HUMBERTO Vital Signs Vital signs: Vital Signs - 8 hr 03/27/20 13:12 03/27/20 13:15 03/27/20 13:28 Temperature 98.8 F Pulse Rate 100 H 108 H 94 H Respiratory Rate 18 Blood Pressure 162/89 H 134/73 Pulse Oximetry 100 100 99 03/27/20 13:30 03/27/20 14:00 03/27/20 14:30 Temperature Pulse Rate 104 H 103 H 75 Respiratory Rate Blood Pressure 134/70 130/63 113/67 Pulse Oximetry 100 100 99 03/27/20 15:00 03/27/20 15:30 Temperature Pulse Rate 81 79 Respiratory Rate Blood Pressure Pulse Oximetry 100 100 <Claudia Paris DO - Last Filed: 03/28/20 07:43> Orders Ordered: Discontinued Medications Hydrocodone Bitart/Acetaminophen (Hydrocodone/Acet 5/325 Tablet) 1 tab PO NOW ONE Stop: 03/27/20 17:03 Last Admin: 03/27/20 17:23 Dose: 1 tab Documented by: HUMBERTO Cyclobenzaprine HCl (Cyclobenzaprine 10 Mg Tablet) 10 mg PO NOW ONE Stop: 03/27/20 15:52 Last Admin: 03/27/20 16:07 Dose: 10 mg Documented by: HUMBERTO Sodium Chloride (Normal Saline 0.9%) 1,000 mls @ 1,000 mls/hr IV BOLUS ONE Stop: 03/27/20 15:29 Last Infusion: 03/27/20 15:51 Dose: 0 mls/hr Documented by: Admin: 03/27/20 14:48 Dose: 1,000 mls/hr Documented by: HUMBERTO Ketorolac Tromethamine (Ketorolac 60 Mg/2 Ml Vial) 30 mg IV NOW ONE Stop: 03/27/20 15:52 Last Admin: 03/27/20 16:07 Dose: 30 mg Documented by: HUMBERTO Lidocaine (Lidocaine Patch 1 Each Adh..Patch) 1 each TOP NOW ONE Stop: 03/27/20 15:52 Last Admin: 03/27/20 16:07 Dose: 1 each Documented by: HUMBERTO Ondansetron HCl (Ondansetron 4 Mg Odt) 4 mg SL NOW ONE Stop: 03/27/20 17:03 Last Admin: 03/27/20 17:23 Dose: 4 mg Documented by: HUMBERTO Vital Signs Vital signs: Vital Signs - 8 hr 03/27/20 13:12 03/27/20 13:15 03/27/20 13:28 Temperature 98.8 F Pulse Rate 100 H 108 H 94 H Respiratory Rate 18 Blood Pressure 162/89 H 134/73 Pulse Oximetry 100 100 99 03/27/20 13:30 03/27/20 14:00 03/27/20 14:30 Temperature Pulse Rate 104 H 103 H 75 Respiratory Rate Blood Pressure 134/70 130/63 113/67 Pulse Oximetry 100 100 99 03/27/20 15:00 03/27/20 15:30 Temperature Pulse Rate 81 79 Respiratory Rate Blood Pressure Pulse Oximetry 100 100 MDM - Abdominal Pain <JOANNE Redding- - Last Filed: 03/27/20 17:43> Differential Diagnosis Differential diagnosis: Likely abdominal pain, calculus of kidney, constipation, diverticulitis, endometriosis and gastroenteritis Lab Data Attestation: I reviewed the patient's lab results. Result diagrams: 03/27/20 13:25 03/27/20 13:25 Labs: Lab Results 03/27/20 03/27/20 Range/Units 13:25 13:25 WBC 11.0 (4.5-11.0) X10^3/uL RBC 4.52 (4.0-5.2) X10^6/uL Hgb 14.1 (12.0-16.0) g/dL Hct 41.5 (36-46) % MCV 91.8 (80-100) fL MCH 31.1 (26-34) PG MCHC 33.9 (30-36) % RDW 13.8 (11.6-14.8) % Plt Count 549 H (150-400) X10^3/uL Neut % (Auto) 49.1 L (50-75) % Lymph % (Auto) 41.7 H (25-40) % Buchanan % (Auto) 6.8 (3-14) % Eos % (Auto) 1.5 L (2-4) % Baso % (Auto) 0.9 (0-2) % Neut # (Auto) 5400 (8309-4370) /uL Lymph # (Auto) 4600 H (6674-5367) /uL Buchanan # (Auto) 800 (0-900) /uL Eos # (Auto) 200 (0-450) /uL Baso # (Auto) 100 (0-100) /uL Sodium 137 (137-145) mmol/L Potassium 3.7 (3.4-5.1) mmol/L Chloride 105 (98-107) mmol/L Carbon Dioxide 28 (22-32) mmol/L BUN 10 (7-17) mg/dL Creatinine 0.58 (0.52-1.04) mg/dL Estimated GFR > 60.0 (>60) mL/min BUN/Creatinine Ratio 17.2 (6-22) Glucose 124 H (70-100) mg/dL Calcium 10.0 (8.4-10.2) mg/dL Total Bilirubin 0.4 (0.2-1.3) mg/dL AST 28 (14-36) IU/L ALT 30 (<35) IU/L Alkaline Phosphatase 120 (38-126) U/L Total Protein 8.3 H (6.3-8.2) g/dL Albumin 4.9 (3.5-5.0) g/dL Globulin 3.4 (1.7-4.1) g/dL Albumin/Globulin Ratio 1.4 (1.0-2.8) Lipase 35 (23-300) U/L Point of care testing: Point of Care Testing Test Results Negative Urine Dip Bedside Urine Glucose Negative Bedside Urine Bilirubin - Negative Bedside Urine Ketone - Negative Urine Specific Lorenzo 1.015 Bedside Urine Occult Blood - Negative Bedside Urine pH 6.0 Bedside Urine Protein - Negative Bedside Urine Urobilinogen - Negative Bedside Urine Nitrite - Negative Bedside Urine Leukocytes - Negative Esterase Imaging Data CT scan - abdomen/pelvis: Radiologist's Impression: CT abdomen pelvis with contrast illustrate no evidence of acute intra abdominal/pelvic abnormality. Punctate nonobstructing right inferior pole nephrolith. No obstructive uropathy. Mild dilation of the left ovarian vein along with prominence of the left adnexal vessels. Recommend correlation for pelvic congestion syndrome. Per Louise Moran [facility] Narrative Medical decision making narrative: The patient is a 39-year-old female who presents for re-evaluation of continued right-sided flank pain, which is been going on for several weeks if not months. She also has had abdominal pain and distension for the past 3 months. I did discussed at length with the patient her labs are grossly normal, no leukocytosis, she is concerned regarding her flank pain in his story of hyronephrosis. CT abdomen pelvis was obtained given length of systems, significant pain to palpation of flank on exam. Discussed that punctate stone in right kidney should not be causing pain however this does not rule out the possibility that she has already passed a stone. Discussed pelvic congestion syndrome, patient is very concerned about endometriosis that she has had laparoscopic surgery for this in the past and has an upcoming appointment with OBGYN regarding this. Encouraged to keep this appointment as well as follow-up with primary care provider in the next few days. Discussed at length with the patient that we ruled out multiple significant etiologies today, though I cannot the fix her ongoing pain of several months, we ruled out life-threatening causes such as acute abdomen etcetera. Elected to hold off on repeat pelvic ultrasound today as the patient states she has had many recently, feels as though lower abdominal pain is improved compared to her flank pain. Urinalysis has no signs of infection, renal function normal limits. Discussed that patient come back to the ER for any acute concerns. Patient has no questions or concerns upon discharge and states understanding of return precautions as well as follow-up care. <Claudia Paris, DO - Last Filed: 03/28/20 07:43> Lab Data Labs: Lab Results 03/27/20 03/27/20 Range/Units 13:25 13:25 WBC 11.0 (4.5-11.0) X10^3/uL RBC 4.52 (4.0-5.2) X10^6/uL Hgb 14.1 (12.0-16.0) g/dL Hct 41.5 (36-46) % MCV 91.8 (80-100) fL MCH 31.1 (26-34) PG MCHC 33.9 (30-36) % RDW 13.8 (11.6-14.8) % Plt Count 549 H (150-400) X10^3/uL Neut % (Auto) 49.1 L (50-75) % Lymph % (Auto) 41.7 H (25-40) % Buchanan % (Auto) 6.8 (3-14) % Eos % (Auto) 1.5 L (2-4) % Baso % (Auto) 0.9 (0-2) % Neut # (Auto) 5400 (3931-6997) /uL Lymph # (Auto) 4600 H (2415-5043) /uL Buchanan # (Auto) 800 (0-900) /uL Eos # (Auto) 200 (0-450) /uL Baso # (Auto) 100 (0-100) /uL Sodium 137 (137-145) mmol/L Potassium 3.7 (3.4-5.1) mmol/L Chloride 105 (98-107) mmol/L Carbon Dioxide 28 (22-32) mmol/L BUN 10 (7-17) mg/dL Creatinine 0.58 (0.52-1.04) mg/dL Estimated GFR > 60.0 (>60) mL/min BUN/Creatinine Ratio 17.2 (6-22) Glucose 124 H (70-100) mg/dL Calcium 10.0 (8.4-10.2) mg/dL Total Bilirubin 0.4 (0.2-1.3) mg/dL AST 28 (14-36) IU/L ALT 30 (<35) IU/L Alkaline Phosphatase 120 (38-126) U/L Total Protein 8.3 H (6.3-8.2) g/dL Albumin 4.9 (3.5-5.0) g/dL Globulin 3.4 (1.7-4.1) g/dL Albumin/Globulin Ratio 1.4 (1.0-2.8) Lipase 35 (23-300) U/L Point of care testing: Point of Care Testing Test Results Negative Urine Dip Bedside Urine Glucose Negative Bedside Urine Bilirubin - Negative Bedside Urine Ketone - Negative Urine Specific Lorenzo 1.015 Bedside Urine Occult Blood - Negative Bedside Urine pH 6.0 Bedside Urine Protein - Negative Bedside Urine Urobilinogen - Negative Bedside Urine Nitrite - Negative Bedside Urine Leukocytes - Negative Esterase Discharge Plan Departure Patient Disposition: Home Clinical Impression: Flank pain, Right nephrolithiasis Instructions: DI for Flank Pain Activity Restrictions/Additional Instructions: Thank you for trusting us with your care today. As discussed, your lab work was reassuring, your urinalysis had no acute findings. The CT shows a stone that is very small inside your right kidney, however I do not believe that would be causing this pain. It is impossible to know if you have already passed a kidney stone, however there is no evidence of blood in your urine. Please follow-up with primary care provider in the next few days. Please come back to the emergency department for any acute concerns. I sent your prescriptions to [facility]. I have given you a prescription of Toradol. This is an NSAID. Do not combine it with other NSAIDs such as Aleve or ibuprofen. I suggest taking it with some food, as it can irritate your stomach. I have given you a prescription of a narcotic for pain. Be aware that this can be constipating and sedating. I encouraged taking with a stool softener, pushing fluids and fiber. Do not take and drive, operate heavy machinery, etc. Do not combine it with any other sedating substances such as alcohol. The combination of narcotics and alcohol and/or other sedatives can be lethal. Please be aware that we do not provide refills of controlled substances in the emergency department. I have also given you a small prescription of a muscle relaxer, this can be sedating. I have also given you a prescription for nausea medication. Be aware that this can be constipating. Please come back to the emergency department for any acute concerns. Prescriptions: New ondansetron 4 mg tablet,disintegrating 4 mg PO Q6H PRN (Reason: nausea and vomiting) Qty: 14 RF: 0 lidocaine 5 % adhesive patch,medicated 1 patch topical DAILY PRN (Reason: pain) Qty: 15 RF: 0 ketorolac 10 mg tablet 10 mg PO TID PRN (Reason: pain) Qty: 14 RF: 0 cyclobenzaprine 10 mg tablet 10 mg PO TID PRN (Reason: muscle spasm) Qty: 10 RF: 0 hydrocodone-acetaminophen [Custer] 5-325 mg tablet 1 tab PO Q4-6H PRN (Reason: pain) Qty: 10 RF: 0 No Action oxycodone 5 mg tablet 5 mg PO Q8H PRN (Reason: pain) Qty: 14 RF: 0 Referrals: Jaden Thapa MD [Primary Care Provider] - <Claudia Paris DO - Last Filed: 03/28/20 07:43> Cosign ED Attending Cosignature Attestation: I was immediately available in the department for consultation. Documentation has been reviewed. I agree with assessment and plan.
== END 2020-03-27 17:37 | disposition home or self-care (01) ==
PROVIDERS: Emergency Provider Nurse Practitioner Family; PCP Family Medicine
DX: N20.0 Calculus of kidney (principal)
CPT/HCPCS: 36415; 74177; 80053; 81003; 81025; 83690; 85025; 96361; 96374; 99283; 99284; J1885; Q9967

== ENCOUNTER → 2020-04-06 11:53 | Outpatient (CLI) | payer OTHER, MEDICAID, SELFPAY ==
--- NOTE | 2020-04-06 11:55 | DI.US.S_ITS ---
PROCEDURE: US PELVIC COMPLETE INDICATIONS: Pelvic pain/bloating TECHNIQUE: Real-time scanning was performed of the pelvic organs, with image documentation. Additional endovaginal scanning was necessary due to incomplete visualization of the adnexal and endometrial structures by transabdominal scanning. COMPARISON: [facility], US, US PELVIC COMPLETE, 10/01/2019, 10:10. FINDINGS: Transabdominal scanning: Limited scanning through the kidneys shows no hydronephrosis. No pathologic free abdominal or pelvic fluid. Endovaginal scanning: Uterus: Uterus is normal in size at 8.8 x 6.0 x 5.6 cm. The endometrium measures 4.8 mm in combined thickness. There is a 2.3 x 2.6 x 2.0 cm intramural fibroid in the right posterior uterine wall, unchanged in size. Note is made of no both in cysts. Ovaries: Right ovary measures 4.2 x 1.9 x 2.8 cm. Left ovary measures 4.7 x 2.9 x 2.6 cm. There is normal blood full proved both ovaries. Complex cyst is seen in the left ovary measuring 3.6 x 2.6 x 2.3 cm. Echogenic foci in right ovary are compatible with calcification. Prominent pelvic veins are noted bilaterally. IMPRESSION: 1. There is a 3.6 x 2.6 by 2.3 cm complex cyst in the left ovary. Recommend a short-term follow-up ultrasound in 6-12 weeks. 2. Echogenic foci in the right ovary are compatible with calcifications. 3. No ultrasound findings to suggest testicular torsion. 3. A 2.3 x 2.6 x 2.0 cm intramural fibroid in the right posterior uterine wall. Uterus are otherwise normal. Dictated by: Uriel Fabian M.D. on 04/06/2020 at 16:49 Approved by: Uriel Fabian M.D. on 04/06/2020 at 17:00
== END ==
PROVIDERS: PCP Family Medicine; Referring Provider Obstetrics & Gynecology; Visit Provider Obstetrics & Gynecology
DX: R10.2 Pelvic and perineal pain (principal); D25.1 Intramural leiomyoma of uterus; N83.292 Other ovarian cyst, left side; N80.9 Endometriosis, unspecified; R14.0 Abdominal distension (gaseous)
CPT/HCPCS: 76830; 76856

== ENCOUNTER → 2020-04-20 10:54 | Outpatient (CLI) | payer OTHER, MEDICAID, SELFPAY ==
[2020-04-20 12:30] LABS: Cancer Antigen 125 9.5 U/mL (0-35)
== END ==
PROVIDERS: PCP Family Medicine; Referring Provider Obstetrics & Gynecology; Visit Provider Obstetrics & Gynecology
DX: N83.209 Unspecified ovarian cyst, unspecified side (principal)
CPT/HCPCS: 36415; 86304

== ENCOUNTER → 2020-05-13 13:09 | Outpatient (CLI) | payer OTHER, MEDICAID, SELFPAY ==
[2020-05-13 13:40] LABS: COVID19 -Nasal RAPID Negative (Negative)
== END ==
PROVIDERS: PCP Family Medicine; Visit Provider Obstetrics & Gynecology
DX: Z20.822 Contact with and (suspected) exposure to COVID-19 (principal)
CPT/HCPCS: 87635

== ENCOUNTER 2020-05-14 10:44 | Day surgery (SDC) | payer OTHER, MEDICAID, SELFPAY ==
[2020-05-14] VITALS (14 sets, daily range): BP systolic 83–145; BP diastolic 46–84; PULSE 88–122; RESP 9–22; TEMP 36.3–37; O2SAT 95–100; BMI 34.0
--- NOTE | 2020-05-14 | PATH_ITS ---
[facility] Accession Number: [id number] . 01 Material submitted: . uterus - UTERUS, BOTH FALLOPIAN TUBES AND OVARIES . 01 Clinical history: . OPB . 01 Diagnosis: Uterus, Fallopian Tubes and Ovaries, Supracervical Hysterectomy and Bilateral Salpingo-oophorectomy: Endometrium: Weakly proliferative. Myometrium: Adenomyosis and leiomyomata without significant atypia. Ovaries: Multiple cystic follicles and hemorrhagic corpus luteum. Fallopian tubes: Benign paratubal cysts. [facility] 05/19/2020 1424 Local . 01 Comment: Involvement by endometriosis is not identified. There is no evidence of malignancy. . 01 Electronically signed: . Christine Peña MD, Pathologist NPI- [id number] . 01 Gross description: . The specimen is received in formalin, labeled uterus, bilateral tubes and ovaries and consists of a 103-gram fragmented uterus measuring 11.0 x 10.0 x 5.0 cm in aggregate. The cervix is not identified. The serosa is segura-pink and smooth. The endometrium is segura-pink, focally hemorrhagic and glistening measuring 0.1 cm in thickness. The myometrium is segura-pink and trabeculated. There are multiple segura-white whorled leiomyomata fragments ranging from 0.3 to 2.2 cm with no areas of hemorrhage, necrosis or cystic degeneration. Also received are two detached ovaries measuring 3.1 x 2.5 x 1.5 cm and 4.5 x 3.2 x 2.0 cm. The external surface are segura and cerebriform and the larger ovary has a 1.5 x 1.5 cm area of disruption with adherent red clotted blood. Sectioning through the ovaries reveals multiple segura-pink smooth-walled serous-filled cysts ranging from 0.1 to 1.8 cm with no papillary excrescences. The larger ovary has an attached fallopian tube measuring 6.0 cm in length by 0.9 cm in diameter, and the other detached fallopian tube measures 4.5 cm in length by 0.9 cm in diameter. The serosa is pink-purple and smooth with multiple paratubal cysts ranging from 0.2 to 1.8 cm. Sectioning reveals a segura mucosa and a stellate lumen measuring 0.2 cm in diameter. Data Integration Developer sections are submitted. . A1-A2 - endomyometrium. A3-A4 - human resources representative leiomyomata. A5-A6 - human resources representative larger ovary. A7-A8 - human resources representative fallopian tube attached to larger ovary, bisected fimbria and central cross-sections. A9-A10 - human resources representative smaller ovary. A11-A12 - other fallopian tube, bisected fimbria and central cross-sections. ([id number]) /MRV 05/18/2020 1623 Local . 01 Pathologist provided ICD-10: N83.209, R10.2 . 01 CPT . 578348 Performed at: 01 [facility] [address] [place] [address] [address], [place], [place] [id number] MD Michael Wiley MD Phone: [phone]
[2020-05-14] MEDS: LACTATED RINGERS 1,000 ML 100 ML IV ×2 (11:20→18:56)
--- NOTE | 2020-05-14 14:06 | PM.PREOP ---
Pre-operative Note COVID-19 COVID-19 status: Negative Result date/Date tested (Pos, Neg/Pending): 05/13/20 Interval Note History & Physical reviewed/Exam performed by Physician: Yes Changes to H&P: No H&P completed within 30 days and has changed as indicated here:: 05/13/20
[2020-05-14] MEDS: CEFAZOLIN 2 GM/100 ML FROZ.PIGGY IV (14:20)
--- NOTE | 2020-05-14 14:58 | SUR.OPER ---
Lithotomy on padded OR bed. Falkner Pad Positioner under torso. Head on pillow, arms padded and tucked at sides. Legs secured in padded yellow fins stirrups.
[2020-05-14] MEDS: BUPIVACAINE 0.5% W/ EPI (PF) 30 ML VIAL INJ (15:10)
[2020-05-14] MEDS: ROPIVACAINE 0.2% PF 2 MG/ML 10ML AMP 20 ML INJ (15:33)
--- NOTE | 2020-05-14 16:08 | P.OP_ITS ---
Operative Date/Time/Diagnoses Date of procedure: 05/14/20 Time of procedure: 16:08 Pre-op diagnosis: Endometriosis Left ovarian cyst Pelvic pain Post-op diagnosis: same Procedure & Clinicians Procedure: Procedures Operation Date: 05/14/20 12:15 Actual Procedures Side Surgeon p Laparoscopic Supracervical Hysterectomy w/ bilateral salpingo-oophorectomy, Hillary Barroso MD Indications: Endometriosis Pelvic pain Left ovarian cyst Surgeon: Hillary Barroso Slurry Worker: Germaine Canchola Anesthesia Type: General and Local Operative Notes Findings: Ten week size anteverted uterus Left ovarian cyst Normal tubes Endometriosis of the right ovary and posterior cul-de-sacs Normal liver and gallbladder Normal appendix Closure Type: primary Specimen(s): left tube & ovary, right tube & ovary and uterus Applied: catheter (Removed at the end of the case) Estimated blood loss (mL): 25 Blood products transfused: none Procedure in detail: The patient was taken to the operating room where she was placed in the dorsal supine position. After adequate general endotracheal anesthesia was achieved, she was placed in the dorsal lithotomy position, and prepped and draped in the usual sterile fashion. A timeout was performed. A bivalve speculum was placed into the vagina and the anterior lip of the cervix grasped with a single-tooth tenaculum. The cervical os was sequentially dilated until the ZUMI uterine manipulator could pass easily into the endometrial cavity. The single-tooth tenaculum was removed from the anterior lip of the cervix, and the bivalve speculum was removed from the vagina. Attention was then turned to the abdomen where 6 mL of half percent Marcaine with epinephrine were injected in the umbilical fold. A 5 mm incision was made. The veress needle was placed into the peritoneal cavity, and its placement confirmed by aspiration and drop test. The veress needle was removed. A 5 mm trocar was placed without difficulty. 2 other incisions were made midway between the pubic symphysis and umbilicus after 5 mL of half percent Marcaine with epinephrine were injected. These were 5 mm incisions. Two, 5 mm trochars were placed under direct visualization. The right tube and ovary were grasped with an atraumatic grasper. Using the plasma kinetic with settings of 40 W the mesosalpinx was cauterized and cut all the way down to the cornua of the uterus. The cornua of the uterus was then grasped with an atraumatic grasper. The utero-ovarian ligaments were cauterized and cut. The round ligament and broad ligament were cauterized and cut with plasma kinetic. Hemostasis was achieved. The bladder flap was created using the plasma kinetic with cautery and cut correction across. The uterine arteries on the right side were extensively cauterized with plasma kinetic. All of this was repeated on the left side. The remainder of the bladder flap was created using the plasma kinetic, and the bladder taken down off the lower uterine segment and cervix. Using the L[place]oop, the cervix was amputated from the uterus 2 cm above the uterosacral ligaments, after the ZUMI uterine manipulator was removed from the uterus and a moistened sponge stick was placed in the vagina. There was a small amount of bleeding noted from the posterior edge of the cervix, and this was cauterized for hemostasis. The endocervical canal was extensively cauterized with the PlasmaKinetic. 6 mL of half percent Marcaine with epinephrine were injected above the pubic symphysis. A 12mm incision was made. A 12 mm trocar was placed under direct visualization. An Endobag was placed through the suprapubic trochar and the uterus placed into the Endobag. The uterus was morcellated in approximately 15 pieces. The tubes and ovaries were also removed from the Endobag. The Endobag was removed from the peritoneal cavity. The pelvis was copiously irrigated with warm normal saline. No bleeding was noted. there were adhesions between the posterior cervix and the posterior cul-de-sac, and these were taken down with the Endo Jada. Hemostasis was achieved. 20 mL of 0.2% ropivacaine were placed over the pelvic pedicles. The instruments were removed from the abdomen. The CO2 was allowed to escape. The suprapubic incision was closed on the fascia with 0 Vicryl. Two simple interrupted sutures of 3-0 Vicryl were placed in the suprapubic incision. All of the incisions were closed with 4-0 Biosyn in a subcuticular fashion. Steri strips and Allevyn dressings were placed over the incisions. The moistened sponge stick was removed from the vagina. Sponge, lap, and instrument counts were correct x 2. The patient tolerated the procedure well, was taken to PACU in stable condition. The assistant associate full professor did the right side of the uterus cautery and cut of the blood supply. She retracted the left side of the uterus while the primary surgeon cauterized and cut the blood supply on the left side. She created a bladder flap half way across from the right side. She pulled of the tubes and ovaries through the Celsa loop. She provided traction on the uterus while the uterus was being amputated from the cervix. She placed the uterus, tubes, and ovaries into the bag while the assistant associate full professor opened the endobag. She provided retraction while the uterus was being morcellated. She provided retraction while the fascia was being closed in the suprapubic incision. She provided retraction while the adhesions were being lysed. Complications: none Post-operative Condition: stable Disposition: PACU Plan for aftercare: To acute care after recovery
[2020-05-14] MEDS: HYDROMORPHONE 2 MG INJ IV ×4 (16:24→16:54)
--- NOTE | 2020-05-14 16:30 | SUR.PHASEI ---
Pt arrived with patent airway, awoke. C/O pain, medicated with dilaudid, Dr. Whitaker and Dr. Barroso to bedside and spoke with pt.
--- NOTE | 2020-05-14 16:51 | SUR.PHASEI ---
Report to FLOR Ugarte
[2020-05-14] MEDS: OXYCODONE/ACETAMINOPHEN 5/325 TABLET 1 TAB PO ×2 (16:54→17:23)
--- NOTE | 2020-05-14 17:59 | PC.ADMIT ---
[email or web address] Admission Note: The patient,Claudette Navarro,39 y/o, was given written information regarding hospital policies, unit procedures and contact persons. Patient's smoking status: Current every day smoker. Pt arrived from PACU, A/O. Drsgs to abd x4. c/d/i. Charla-pad with minimal drainage. Ambulated to bathroom. Steady on feet. Returned to bed. SCD's applied. Oriented to room and call system. Vital Signs - 8 hr 05/14/20 11:05 05/14/20 16:08 05/14/20 16:13 Temperature 98.4 F 98.4 F Pulse Rate 100 H 122 H 113 H Respiratory Rate 16 11 L 16 Blood Pressure 130/84 134/70 145/58 H Pulse Oximetry 100 98 97 05/14/20 16:18 05/14/20 16:23 05/14/20 16:38 Temperature Pulse Rate 103 H 105 H 94 H Respiratory Rate 10 L 9 L 22 Blood Pressure 124/74 123/77 116/59 L Pulse Oximetry 97 98 97 05/14/20 16:48 05/14/20 17:03 05/14/20 17:13 Temperature 98.6 F 97.9 F Pulse Rate 98 H 108 H 109 H Respiratory Rate 18 18 12 Blood Pressure 112/68 116/66 100/62 Pulse Oximetry 97 97 98
[2020-05-14] MEDS: OXYCODONE IR 5 MG TABLET PO (18:56)
[2020-05-14] MEDS: ACETAMINOPHEN 325 MG TABLET 650 MG PO (21:08)
[2020-05-14] MEDS: DOCUSATE 250 MG CAPSULE PO (21:35)
[2020-05-14] MEDS: OXYCODONE IR 10 MG TABLET PO (22:38)
[2020-05-15] MEDS: KETOROLAC 30 MG/ML VIAL IV ×3 (00:02→11:17)
[2020-05-15 00:08] VITALS: BP 100/54; PULSE 92; RESP 22; TEMP 36.6; O2SAT 96
--- NOTE | 2020-05-15 02:38 | PC.NURSE ---
Addendum entered by Vane Morton R.N. 05/15/20 07:24: CONTACTED PROVIDER- IV DILAUDID ORDERED TO CONTROL PAIN. Addendum entered by Vane Morton R.N. 05/15/20 06:10: Pain no longer being controlled by medication. Pt states she may have built up a tolerance for heavy duty pain killers d/t using them as prescribed for admitting dx. Original Note: Pt stable at start of shift, in no apparent distress. Scheduled toradol given to control pain at surgical site. Pt indicates tolerating pain with decrease in intensity with current medication regime.
[2020-05-15] MEDS: OXYCODONE IR 10 MG TABLET PO (02:45)
[2020-05-15] MEDS: LACTATED RINGERS 1,000 ML 100 ML IV (02:45)
[2020-05-15 04:35] VITALS: BP 102/56; PULSE 96; RESP 22; TEMP 36.6; O2SAT 96
[2020-05-15 06:04] LABS: Add Manual Diff / Slide Review NO; Basophils Absolute Auto 100 /uL (0-100); Basophils Percent Auto 0.5 % (0-2); Eosinophils Absolute Auto 0 /uL (0-450); Eosinophils Percent Auto 0.2 % (2-4); Hematocrit 35.4 % (36-46); Hemoglobin 11.8 g/dL (12.0-16.0); Lymphocytes Absolute Auto 1700 /uL (1100-4500); Lymphocytes Percent Auto 9.5 % (25-40); Mean Corpuscular HGB Conc 33.2 % (30-36); Mean Corpuscular Hemoglobin 30.7 PG (26-34); Mean Corpuscular Volume 92.5 fL (80-100); Monocytes Absolute Auto 900 /uL (0-900); Monocytes Percent Auto 4.7 % (3-14); Neutrophils Absolute Auto 15400 /uL (1500-7000); Neutrophils Percent Auto 85.1 % (50-75); Platelet Count 446 X10^3/uL (150-400); Red Blood Cell Count 3.83 X10^6/uL (4.0-5.2); Red Cell Distribution Width 14.7 % (11.6-14.8); White Blood Cell Count 18.1 X10^3/uL (4.5-11.0)
[2020-05-15] MEDS: HYDROMORPHONE 0.5 MG INJ IV ×2 (07:40→11:19)
[2020-05-15] MEDS: DOCUSATE 250 MG CAPSULE PO (07:48)
--- NOTE | 2020-05-15 14:24 | CM.IDA ---
Initial DCP Assessment Note Pt is a 39 yo female, resident of [facility], now POD#1 from Laparoscopic Supracervical Hysterectomy w/ bilateral salpingo-oophorectomy w/ Dr Barroso PCP: Jaden Thapa Payer: [email or web address]/[email or web address] Reviewed chart, pt discussed in multidisciplinary rounds this morning. Dr Barroso discharging patient home today w/family, no needs identified from this CHORAL DIRECTOR. No needs expected from DC planning team although will remain available in case this changes today. Daisy Mosquera, CHORAL DIRECTOR
== END 2020-05-15 11:35 | disposition home or self-care (01) ==
LOC: OR 10:45 → AC 13:39
PROVIDERS: Obstetrics & Gynecology; PCP Family Medicine; Referring Provider Obstetrics & Gynecology; Visit Provider Obstetrics & Gynecology
PROC: 0UT94ZL Resection of Uterus, Supracervical, Percutaneous Endoscopic Approach (ICD-10-PCS; CPT 58542; principal; 2020-05-14 12:15)
DX: N80.0 Endometriosis of uterus (principal); N80.3 Endometriosis of pelvic peritoneum; N80.1 Endometriosis of ovary; F17.210 Nicotine dependence, cigarettes, uncomplicated; N83.10 Corpus luteum cyst of ovary, unspecified side; N83.8 Other noninflammatory disorders of ovary, fallopian tube and broad ligament; D25.9 Leiomyoma of uterus, unspecified
CPT/HCPCS: 58542; 36415; 85025; J0690; J1100; J1170; J1885; J2250; J2405; J2704; J2795; J3010

== ENCOUNTER → 2020-06-23 10:41 | Outpatient (CLI) | payer OTHER, MEDICAID, SELFPAY ==
[2020-05-14 18:33] VITALS: BMI 34.0
[2020-06-23 11:32] LABS: Add Manual Diff / Slide Review NO; Basophils Absolute Auto 100 /uL (0-100); Basophils Percent Auto 1.1 % (0-2); Eosinophils Absolute Auto 200 /uL (0-450); Eosinophils Percent Auto 3.1 % (2-4); Hematocrit 38.9 % (36-46); Hemoglobin 13.1 g/dL (12.0-16.0); Lymphocytes Absolute Auto 2700 /uL (1100-4500); Lymphocytes Percent Auto 33.5 % (25-40); Mean Corpuscular HGB Conc 33.7 % (30-36); Mean Corpuscular Volume 91.9 fL (80-100); Monocytes Absolute Auto 600 /uL (0-900); Monocytes Percent Auto 7.6 % (3-14); Neutrophils Absolute Auto 4400 /uL (1500-7000); Neutrophils Percent Auto 54.7 % (50-75); Platelet Count 494 X10^3/uL (150-400); Red Blood Cell Count 4.23 X10^6/uL (4.0-5.2); Red Cell Distribution Width 13.7 % (11.6-14.8); White Blood Cell Count 8.1 X10^3/uL (4.5-11.0)
== END ==
PROVIDERS: PCP Family Medicine; Referring Provider Obstetrics & Gynecology; Visit Provider Obstetrics & Gynecology
DX: R53.83 Other fatigue (principal)
CPT/HCPCS: 36415; 85025

== ENCOUNTER → 2020-12-03 10:10 | Outpatient (CLI) | payer OTHER, MEDICAID, SELFPAY ==
[2020-05-14 18:33] VITALS: BMI 34.0
[2020-12-03 20:24] LABS: COVID19 - ORCAS (NP or Nasal) Negative (Negative)
== END ==
PROVIDERS: PCP Family Medicine; Referring Provider Family Medicine; Visit Provider Family Medicine
DX: Z20.822 Contact with and (suspected) exposure to COVID-19 (principal)
CPT/HCPCS: U0003

== ENCOUNTER → 2021-06-15 12:18 | Outpatient (CLI) | payer OTHER, SELFPAY ==
[2020-05-14 18:33] VITALS: BMI 34.0
[2021-06-15 19:21] LABS: Cancer Antigen 125 7.1 U/mL (0-35)
== END ==
PROVIDERS: PCP Family Medicine; Visit Provider Obstetrics & Gynecology
DX: D25.9 Leiomyoma of uterus, unspecified (principal); G89.29 Other chronic pain; R10.2 Pelvic and perineal pain; Z90.710 Acquired absence of both cervix and uterus
CPT/HCPCS: 86304

== ENCOUNTER → 2021-10-28 14:34 | Outpatient (CLI) | payer OTHER, SELFPAY ==
[2020-05-14 18:33] VITALS: BMI 34.0
--- NOTE | 2021-10-28 | DI.MG.S_ITS ---
BILATERAL DIGITAL SCREENING MAMMOGRAM 3D/2D WITH CAD: 10/28/2021 CLINICAL: Routine screening. Family history of breast cancer. Comparison is made to exams dated: 10/15/2019 ultrasound, 10/15/2019 mammogram, and 10/01/2019 mammogram - [facility]. The tissue of both breasts is predominantly fatty. Current study was also evaluated with a Computer Aided Detection (CAD) system. No significant masses, calcifications, or other findings are seen in either breast. There has been no significant interval change. IMPRESSION: NEGATIVE There is no mammographic evidence of malignancy. A 1 year screening mammogram is recommended. Based on the Tyrer Cuzick model (a risk assessment model) the patient's lifetime risk is 4.9% and her 10 year risk is 0.6%. According to the ACR, ACS, and NCCN guidelines, an annual breast MRI exam along with mammogram is recommended if the patient's lifetime risk is 20% or greater. This exam was interpreted at Station ID: [id number]. NOTE: For mammograms, a report in lay terms will be sent to the patient. Approximately 15% of breast malignancies will not be visualized mammographically. In the management of a palpable breast mass, a negative mammogram must not discourage biopsy of a clinically suspicious lesion. Electronically Signed By: Hope [email or web address]/[email or web address]:10/28/2021 17:07:08 letter sent: Normal Exam ACR BI-RADS Category 1: Negative 3341F
== END ==
PROVIDERS: PCP Family Medicine; Referring Provider Family Medicine; Visit Provider Family Medicine
DX: Z12.31 Encounter for screening mammogram for malignant neoplasm of breast (principal); Z80.3 Family history of malignant neoplasm of breast
CPT/HCPCS: 77063; 77067

== ENCOUNTER → 2023-02-23 13:09 | Outpatient (CLI) | payer OTHER, SELFPAY ==
[2020-05-14 18:33] VITALS: BMI 34.0
--- NOTE | 2023-02-23 | DI.MG.S_ITS ---
BILATERAL DIGITAL SCREENING MAMMOGRAM 3D/2D WITH CAD: 02/23/2023 CLINICAL: Routine screening. Family history of breast cancer. Comparison is made to exams dated: 10/28/2021 mammogram, 10/15/2019 mammogram, and 10/01/2019 mammogram - [facility]. There are scattered areas of fibroglandular density in both breasts (category b / 25%-50% glandular tissue). Current study was also evaluated with a Computer Aided Detection (CAD) system. No significant masses, calcifications, or other findings are seen in either breast. IMPRESSION: NEGATIVE There is no mammographic evidence of malignancy. A 1 year screening mammogram is recommended. Based on the Tyrer Cuzick model (a risk assessment model) the patient's lifetime risk is 7.8% and her 10 year risk is 1.1%. According to the ACR, ACS, and NCCN guidelines, an annual breast MRI exam along with mammogram is recommended if the patient's lifetime risk is 20% or greater. This exam was interpreted at Station ID: [id number]. NOTE: For mammograms, a report in lay terms will be sent to the patient. Approximately 15% of breast malignancies will not be visualized mammographically. In the management of a palpable breast mass, a negative mammogram must not discourage biopsy of a clinically suspicious lesion. Electronically Signed By: Karen Estes M.D., PH.D [email or web address]/[email or web address]:02/25/2023 21:25:20 letter sent: Normal Exam ACR BI-RADS Category 1: Negative [id number]
== END ==
PROVIDERS: PCP Family Medicine; Referring Provider Family Medicine; Visit Provider Family Medicine
DX: Z12.31 Encounter for screening mammogram for malignant neoplasm of breast (principal); Z80.3 Family history of malignant neoplasm of breast
CPT/HCPCS: 77063; 77067

== ENCOUNTER → 2024-04-11 13:57 | Outpatient (CLI) | payer OTHER, SELFPAY ==
[2020-05-14 18:33] VITALS: BMI 34.0
--- NOTE | 2024-04-11 13:58 | DI.CT.S_ITS ---
PROCEDURE: CT ABDOMEN PELVIS WO/W CON INDICATIONS: francesca hematuria TECHNIQUE: Optional 5 mm thick noncontrast images acquired from the diaphragm to the symphysis pubis. After the administration of intravenous contrast, 5 mm thick images acquired from the diaphragm to the symphysis pubis after a 10-minute delay. 2 mm thick coronal and sagittal reformats were then performed of the kidneys and ureters. For radiation dose reduction, the following was used: automated exposure control, adjustment of mA and/or kV according to patient size. COMPARISON: None. FINDINGS: Image quality: Diagnostic. Kidneys and Ureters: Both kidneys are normal in size, without visualized hydronephrosis or nephrolithiasis during pre contrast imaging. No perinephric fat stranding. There is normal bilateral renal enhancement. Renal calyces appear normal in morphology when filled with contrast, slightly more filled on the right than the left. Opacified portions of both ureters demonstrate normal caliber. However, on review of the pre contrast imaging with reference to the contrast excretion imaging it is discovered that a distal right ureteral stone is present measuring up to 4 mm in maximal dimension, best seen on series 2, image 108. The same image site is also visualized on excretion imaging series 9, image 108. The calcification present clearly is within rather than adjacent to the right ureter. Bladder: Bladder wall thickness is normal. No calcified bladder stones. OTHER: Lower chest: Unremarkable. Liver: No solid mass. Gallbladder: Prior cholecystectomy Biliary ducts: No biliary dilation. Pancreas: No ductal dilation. Spleen: Size is within normal limits. Adrenal Glands: No adrenal nodules. Stomach and Bowel: Normal colonic caliber, without significant wall thickening. Peritoneum: No abnormal intraperitoneal fluid. No free air. Ventral Wall: No hernia. Abdominal Nodes: No retroperitoneal or mesenteric adenopathy by size criteria. Vessels: Aorta and inferior vena cava are normal in size. PELVIS: Pelvic Organs: Unremarkable. Pelvic Nodes: No enlarged lymph nodes. Miscellaneous: No inguinal hernias are seen. Bones: No aggressive osseous abnormality. IMPRESSION: Slight asymmetric prominence of the excretion phase imaging of the right renal collecting system when compared to the left. This appears secondary to a distal right ureteral stone within the pelvis, measuring only 4 mm in maximal dimension. A soft tissue mass is not associated and this calcification therefore appears to represent a nonobstructive ureteral stone as likely cause for persistent hematuria. No urothelial or renal cortical mass lesion is found. Urology consultation appears warranted regarding potential for removal of the right ureteral stone. Such calculi can slowly progressed to obstruction and secondary renal cortical atrophy with little symptomatology. Dictated by: Cameron Gonzalez M.D. on 04/11/2024 at 16:37 Approved by: Cameron Gonzalez M.D. on 04/11/2024 at 16:46
[2024-04-11 14:27] LABS: Estimated Glomerular Filt Rate > 60 mL/min (>60)
== END ==
PROVIDERS: Radiology Diagnostic Radiology; PCP Family Medicine; Referring Provider Family Medicine; Visit Provider Family Medicine
DX: R31.0 Gross hematuria (principal); M54.50 Low back pain, unspecified; Z90.49 Acquired absence of other specified parts of digestive tract
CPT/HCPCS: 36415; 74178; 82565; Q9967

== ENCOUNTER → 2024-05-05 14:49 | Outpatient (CLI) | payer OTHER, SELFPAY ==
[2020-05-14 18:33] VITALS: BMI 34.0
--- NOTE | 2024-05-05 14:51 | DI.RAD.S_ITS ---
PROCEDURE: XR KUB INDICATIONS: Follow-up right ureteral calculus TECHNIQUE: One view of the abdomen acquired. COMPARISON: [facility], CT, CT ABDOMEN PELVIS WO/W CON, 04/11/2024, 14:50. FINDINGS: Surgical changes and devices: None. Bowel: Bowel gas pattern is normal. Soft tissues: No suspicious abdominal calcifications. Visualized solid organ contours appear normal in size. Bones: No suspicious bony lesions. IMPRESSION: No right-sided ureteral stone identified. Dictated by: Bakari Vieira M.D. on 05/05/2024 at 18:25 Approved by: Bakari Vieira M.D. on 05/05/2024 at 18:27
== END ==
PROVIDERS: PCP Family Medicine; Referring Provider Urology; Visit Provider Urology
DX: N20.1 Calculus of ureter (principal); R31.0 Gross hematuria; Z72.0 Tobacco use
CPT/HCPCS: 74018; 81002; 99214